=== PATIENT | female | born 2000 | race Hispanic/Latino ===

== ENCOUNTER 2020-06-22 21:28 | Emergency (ER) | payer BC ==
--- NOTE | 2020-06-22 22:31 | RAD REPORT ---
EXAM DESCRIPTION: RAD - Elbow Right 3 View - 06/22/2020 10:03 pm CLINICAL HISTORY: Elbow pain FINDINGS: No fracture or dislocation seen
--- NOTE | 2020-06-22 22:36 | ER ---
Nurse's Notes [facility] Name: Kaylynn Caceres Age: 19 yrs Sex: Female : 2000 Arrival Date: 06/22/2020 Time: 21:30 Bed 7 Private MD: Diagnosis: Contusion of right elbow-from fall Presentation: 06/22 21:32 Chief complaint: Patient states: "I was roller skating and I fell and hurt my right jd3 arm.". Coronavirus screen: At this time, the client does not indicate any symptoms associated with coronavirus-19. Ebola Screen: Patient negative for fever greater than or equal to 101.5 degrees Fahrenheit, and additional compatible Ebola Virus Disease symptoms. Initial Sepsis Screen: Does the patient meet any 2 criteria? No. Patient's initial sepsis screen is negative. Does the patient have a suspected source of infection? No. Patient's initial sepsis screen is negative. Risk Assessment: Do you want to hurt yourself or someone else? Patient reports no desire to harm self or others. Onset of symptoms was June 22, 2020. 21:32 Method Of Arrival: Ambulatory jd3 21:32 Acuity: ALEYDA 4 jd3 Triage Assessment: 23:09 Injury Description: contusion. 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 - Social history:: Smoking status: Patient denies any tobacco usage or history of. Screenin:45 Abuse screen: Denies threats or abuse. Denies injuries from another. Nutritional mg2 screening: No deficits noted. Tuberculosis screening: No symptoms or risk factors identified. Tuberculosis screening: No symptoms or risk factors identified. Fall Risk Fall in past 12 months (25 points). Assessment: 21:44 General: Appears in no apparent distress. comfortable, Behavior is calm, cooperative. mg2 Pain: Complains of pain in right elbow. Neuro: Level of Consciousness is awake, alert, obeys commands, Oriented to person, place, time, situation. Cardiovascular: Capillary refill < 3 seconds Patient's skin is warm and dry. Respiratory: Airway is patent Respiratory effort is even, unlabored, Respiratory pattern is regular, symmetrical. GI: No signs and/or symptoms were reported involving the gastrointestinal system. : No signs and/or symptoms were reported regarding the genitourinary system. EENT: No signs and/or symptoms were reported regarding the EENT system. Derm: Skin is intact, is healthy with good turgor, Skin is pink, warm \\T\\ dry. normal. Musculoskeletal: Circulation, motion, and sensation intact. Capillary refill < 3 seconds, Reports pain in right elbow. 23:08 Reassessment: Patient and/or family updated on plan of care and expected duration. Pain ea level reassessed. Patient is alert, oriented x 3, equal unlabored respirations, skin warm/dry/pink. Discharge instruction given to patient, verbalized the understanding of instruction. Vital Signs: 21:34 BP 123 / 77; Pulse 88; Resp 17 S; Temp 98.0(TE); Pulse Ox 100% on R/A; Weight 77.11 kg jd3 (R); Height 5 ft. 7 in. (170.18 cm) (R); Pain 8/10; 21:34 Body Mass Index 26.63 (77.11 kg, 170.18 cm) jd3 ED Course: 21:30 Patient arrived in ED. bp1 21:33 Triage completed. jd3 21:35 Arm band placed on. jd3 21:37 Neil Beatty PA is PHCP. cp 21:37 Sedrick Pineda MD is Attending Physician. cp 21:37 Benton Jimenez, SHAHIDA is Primary Nurse. mg2 21:45 Patient has correct armband on for positive identification. mg2 21:45 Door closed. Ice pack to injury. mg2 21:45 No provider procedures requiring assistance completed. Patient did not have IV access mg2 during this emergency room visit. 22:03 XRAY Elbow RIGHT 3 view: fall while roller skating In Process Unspecified. EDMS 22:34 Yoseph Graham MD is Referral Physician. cp 23:06 Orthoglass splint: posterior long arm splint applied to the right arm. dh4 Administered Medications: 22:41 Drug: Ibuprofen 800 mg Route: PO; ea 22:57 Follow up: Response: No adverse reaction mg2 22:42 Drug: Tylenol 1000 mg Route: PO; ea 22:57 Follow up: Response: No adverse reaction mg2 Outcome: 22:35 Discharge ordered by . gregorio 23:08 Discharged to home ambulatory, with family. ea 23:08 Condition: stable 23:08 Discharge instructions given to patient, Instructed on discharge instructions, follow up and referral plans. medication usage, Demonstrated understanding of instructions, follow-up care, medications, Prescriptions given X 1. 23:10 Patient left the ED. ea Signatures: Dispatcher [employer] EDMS Neil Beatty PA PA cp Antunez, Elena RN RN Javier Reyes RN RN jd3 Benton Jimenez RN RN mg2 Ranjeet Staley 4 Joan Gomez [facility] Corrections: (The following items were deleted from the chart) 21:35 21:34 Pulse 88bpm; Resp 17bpm; Spontaneous; Pulse Ox 100% RA; Temp 98.0F Temporal; jd3 77.11 kg Reported; Height 5 ft. 7 in. Reported; BMI: 26.6; Pain 8/10; jd3
--- NOTE | 2020-06-22 22:36 | EDPHYS ---
Physician Documentation [facility] Name: Kaylynn Caceres Age: 19 yrs Sex: Female : 2000 Arrival Date: 06/22/2020 Time: 21:30 Bed 7 Private MD: ED Physician Sedrick Pineda HPI: 06/22 21:45 This 19 yrs old Female presents to ER via Ambulatory with complaints of Arm cp Injury. 21:45 The patient or guardian complains of injury, pain, that is acute, swelling, tenderness, cp painful ROM. The complaints affect the right elbow. Context: resulted from a fall, while skating. Onset: The symptoms/episode began/occurred today. Treatment prior to arrival includes: sling. Associated signs and symptoms: Pertinent negatives: deformity, numbness, tingling. 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 - Social history:: Smoking status: Patient denies any tobacco usage or history of. ROS: 21:50 MS/extremity: Positive for pain, swelling, tenderness, of the right elbow, Negative for cp deformity. 21:50 Constitutional: Negative for fever, chills, and weight loss. cp 21:50 Neck: Negative for pain with movement, pain at rest, stiffness. 21:50 Back: Negative for pain at rest, pain with movement. 21:50 Neuro: Negative for altered mental status, headache, numbness, tingling. 21:50 All other systems are negative. Exam: 21:55 Constitutional: The patient appears in no acute distress, alert, awake, well developed, cp well nourished. 21:55 Head/Face: Normocephalic, atraumatic. cp 21:55 Neck: ROM/movement: is normal, is supple, without pain, no range of motions limitations. 21:55 Chest/axilla: Inspection: normal. 21:55 Cardiovascular: Rate: normal. 21:55 Respiratory: the patient does not display signs of respiratory distress, Respirations: normal, no use of accessory muscles, no retractions. 21:55 Abdomen/GI: Exam negative for discomfort, distension, guarding, Inspection: abdomen appears normal. 21:55 Back: pain, is absent, ROM is normal. 21:55 Musculoskeletal/extremity: Extremities: grossly normal except: noted in the right elbow: pain, Pulses: noted to be 2+ in the right radial artery, Joints: All joints are normal except the right elbow displays limited range of motion, painful range of motion, swelling, tenderness. 21:55 Neuro: Orientation: to person, place \T\ time. Mentation: is normal. Vital Signs: 21:34 BP 123 / 77; Pulse 88; Resp 17 S; Temp 98.0(TE); Pulse Ox 100% on R/A; Weight 77.11 kg jd3 (R); Height 5 ft. 7 in. (170.18 cm) (R); Pain 8/10; 21:34 Body Mass Index 26.63 (77.11 kg, 170.18 cm) jd3 Procedures: 23:10 Splinting: Splint applied to right elbow using posterior elbow orthoglass. applied by cp tech. Examined by me, post splint application: neurovascular intact, Patient tolerated well. MDM: 21:39 Patient medically screened. 22:25 Test interpretation: by ED physician or midlevel provider: xrays of right elbow cp negative for fracture. 22:35 Data reviewed: vital signs, nurses notes, radiologic studies, plain films. 06/22 21:42 Order name: XRAY Elbow RIGHT 3 view: fall while roller skating; Complete Time: 22:34 06/22 22:34 Interpretation: Report reviewed. 06/22 22:24 Order name: Posterior Elbow Splint; Complete Time: 22:57 cp Administered Medications: 22:41 Drug: Ibuprofen 800 mg Route: PO; ea 22:57 Follow up: Response: No adverse reaction mg2 22:42 Drug: Tylenol 1000 mg Route: PO; ea 22:57 Follow up: Response: No adverse reaction mg2 Disposition: 06/23 07:23 Co-signature as Attending Physician, Sedrick Pineda MD. mh7 Disposition: 06/22/20 22:35 Discharged to Home. Impression: Contusion of right elbow - from fall. - Condition is Stable. - Discharge Instructions: Elbow Contusion. - Prescriptions for Naprosyn 500 mg Oral Tablet - take 1 tablet by ORAL route 2 times per day take with food; 20 tablet. - Medication Reconciliation Form, Thank You Letter, Antibiotic Education, Prescription Opioid Use, Work release form form. - Follow up: Yoseph Graham MD; When: 2 - 3 days; Reason: Recheck today's complaints. - Problem is new. - Symptoms have improved. Signatures: Dispatcher [employer] EDMS Neil Beatty PA PA cp Antunez, Elena, RN RN ea Davies, Jonathon, RN RN jd3 Sedrick Pineda MD MD mh7 Benton Jimenez RN mg2 Corrections: (The following items were deleted from the chart) 06/22 23:10 22:35 06/22/2020 22:35 Discharged to Home. Impression: Contusion of right elbow - from ea fall. Condition is Stable. Forms are Medication Reconciliation Form, Thank You Letter, Antibiotic Education, Prescription Opioid Use. Follow up: Dr. Yoseph Graham; When: 2 - 3 days; Reason: Recheck today's complaints. Problem is new. Symptoms have improved. cp
[2020-06-22] MEDS ORDERED: ACETAMINOPHEN 500 MG TAB ONE (22:53)
[2020-06-22] MEDS ORDERED: IBUPROFEN 400 MG TAB ONE (22:53)
[2020-06-23 03:22] VITALS: BP 123/77; TEMP 98; O2SAT 100
== END 2020-06-22 23:10 | disposition home or self-care (01) ==
LOC: ER 21:28
DX: S50.01XA Contusion of right elbow, initial encounter (principal); W19.XXXA Unspecified fall, initial encounter; Y93.21 Activity, ice skating; Y92.9 Unspecified place or not applicable; Z91.011 Allergy to milk products; Z91.012 Allergy to eggs; Z91.018 Allergy to other foods
CPT/HCPCS: 99284

== ENCOUNTER 2023-11-05 21:39 | Emergency (ER) | payer BC ==
[2023-11-05] MEDS ORDERED: NA CHLORIDE 0.9% 1,000 ML ONE (21:52)
[2023-11-05] MEDS ORDERED: FAMOTIDINE 20 MG/2 ML VIAL IV ONE (21:52)
[2023-11-05] MEDS ORDERED: METHYLPREDNISOLONE 125 MG INJ ONE (21:52)
[2023-11-05] MEDS ORDERED: DIPHENHYDRAMINE 50 MG/ML VIAL ONE (21:52)
--- NOTE | 2023-11-05 23:13 | EDPHYS ---
Physician Documentation [facility] Name: Kaylynn Caceres Age: 23 yrs Sex: Female : 2000 Arrival Date: 11/05/2023 Time: 21:39 Bed 12 Private MD: ED Physician Jayce Mitchell HPI: 11/04 21:47 This 23 yrs old Female presents to ER via Unassigned with complaints of kb Allergic Reaction. 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 States her face, ears and hands became red, swollen and itchy. States her throat is feeling itchy as well. Came in right away because it started and progressed quickly. Denies shortness of breath. Historical: - Allergies: 23:23 EGG/POULTRY; kd3 23:23 Milk/dairy products; kd3 - PMHx: 23:23 Anxiety; kd3 - Immunization history:: Adult Immunizations up to date. - Social history:: Smoking status: unknown. ROS: 21:47 Constitutional: As per HPI kb Exam: 21:47 Constitutional: This is a well developed, well nourished patient who is awake, alert, kb and in no acute distress. Head/Face: Normocephalic, atraumatic. ENT: Moist Mucous membranes Cardiovascular: Regular rate Respiratory: Respirations even and unlabored. No increased work of breathing. Talking in full sentences Abdomen/GI: Soft, non-tender. No distention MS/ Extremity: Pulses equal, no cyanosis. Neurovascular intact. Full, normal range of motion. Neuro: Awake and alert, GCS 15, oriented to person, place, time, and situation. Moves all extremities. Normal gait. 21:47 Skin: erythema and slight swelling to face, ears and hands. Rash to neck. Vital Signs: 22:09 BP 123 / 67; Pulse 87; Resp 16; Temp 98.8; Pulse Ox 99% ; Weight 86.18 kg; Height 5 ft. pf1 6 in. ; Pain 0/10; 23:25 BP 122 / 78; Pulse 79; Resp 19; Pulse Ox 98% on R/A; kd3 22:09 Body Mass Index 30.67 (86.18 kg, 167.64 cm) pf1 22:09 Pain Scale: Adult pf1 MDM: 21:43 Patient medically screened. kb 21:49 Differential diagnosis: anaphylaxis, angioedema, urticaria. Data reviewed: vital signs, kb nurses notes. 23:10 Counseling: I had a detailed discussion with the patient and/or guardian regarding the kb historical points, exam findings, and any diagnostic results supporting the discharge/admit diagnosis, the need for outpatient follow up, a family practitioner, to return to the emergency department if symptoms worsen or persist or if there are any questions or concerns that arise at home. Response to treatment: the patient's symptoms have resolved after treatment. 11/04 21:47 Order name: IV Start; Complete Time: 22:02 kb Administered Medications: 22:02 Drug: NS 0.9% IV 1000 ml IV at 1000 ml once Route: IV; Rate: 1000 ml; Site: left pf1 antecubital; 23:08 Follow up: Response: No adverse reaction; IV Status: Completed infusion; IV Intake: ha1 500ml 22:02 Drug: Famotidine IVP 20 mg IVP once; dilute with 10 mL 0.9% NaCl; give over 2 minutes pf1 Route: IVP; Site: left antecubital; 23:00 Follow up: Response: No adverse reaction; Marked relief of symptoms ha1 22:02 Drug: diphenhydrAMINE IVP 25 mg IVP once Route: IVP; Site: left antecubital; pf1 23:00 Follow up: Response: No adverse reaction; Marked relief of symptoms ha1 22:02 Drug: MethylPrednisoLONE IVP 125 mg IVP once Route: IVP; Site: left antecubital; pf1 23:00 Follow up: Response: No adverse reaction; Marked relief of symptoms ha1 Disposition: 11/05 03:34 Co-signature as Attending Physician, Jayce Mitchell MD I reviewed the patient's care rt provided by the Advanced Practice Provider and agree with the diagnosis and treatment plan. Disposition Summary: 11/05/23 23:12 Discharge Ordered Notes: Location: Home kb Condition: Stable kb Diagnosis - Urticaria, unspecified kb Followup: kb - With: Emergency Department - When: As needed - Reason: Worsening of condition Followup: kb - With: Private Physician - When: 2 - 3 days - Reason: Recheck today's complaints, Continuance of care, Re-evaluation by your physician Discharge Instructions: - Discharge Summary Sheet kb - Allergies, Adult kb - Hives, [id number] kb Forms: - Medication Reconciliation Form kb - Thank You Letter kb - Antibiotic Education kb - Prescription Opioid Use kb - Patient Portal Instructions kb - Leadership Thank You Letter kb Prescriptions: - Pepcid 20 mg Oral Tablet - take 1 tablet ORAL route every 12 hours for 5 days; 10 tablet; Refills: 0, kb Product Selection Permitted - Prednisone 20 mg Oral Tablet - take 1 tablet ORAL route once daily for 5 days; 5 tablet; Refills: 0, Product kb Selection Permitted Signatures: Deedee Zhang, Aliyah Mcdowell RN RN kd3 Jayce Mitchell MD MD rt Jannie Campbell RN RN pf1 Lexie Huitron RN ha1
--- NOTE | 2023-11-05 23:13 | ER ---
Nurse's Notes [facility] Name: Kaylynn Caceres Age: 23 yrs Sex: Female : 2000 Arrival Date: 11/05/2023 Time: 21:39 Bed 12 Private MD: Diagnosis: Urticaria, unspecified Presentation: 11/04 22:09 Chief complaint: Patient states: [facility] my hands pf1 started burning, faced felt numb and ears felt like they were swollen. I am allergic to Mild and Eggs. Coronavirus screen: Vaccine status: Patient reports receiving the 2nd dose of the covid vaccine. Ebola Screen: Patient negative for fever greater than or equal to 101.5 degrees Fahrenheit, and additional compatible Ebola Virus Disease symptoms. Onset: The symptoms/episode began/occurred 1 hour(s) ago. Anaphylaxis evaluation, the patient reports or I have noted the following symptoms which indicate a significant risk of anaphylaxis: vomited x1, hands burning, face numb. Initial Sepsis Screen: Does the patient meet any 2 criteria? No. Patient's initial sepsis screen is negative. Risk Assessment: Do you want to hurt yourself or someone else? Patient reports no desire to harm self or others. Onset of symptoms was November 05, 2023. 22:09 Method Of Arrival: Ambulatory pf1 22:09 Acuity: ALEYDA 3 pf1 23:24 Initial Sepsis Screen: Does the patient have a suspected source of infection? No. kd3 Patient's initial sepsis screen is negative. Historical: - Allergies: 23:23 EGG/POULTRY; kd3 23:23 Milk/dairy products; kd3 - PMHx: 23:23 Anxiety; kd3 - Immunization history:: Adult Immunizations up to date. - Social history:: Smoking status: unknown. Screenin:22 [facility] ED Fall Risk Assessment (Adult) History of falling in the last 3 months, kd3 including since admission No falls in past 3 months (0 pts) Confusion or Disorientation No (0 pts) Intoxicated or Sedated No (0 pts) Impaired Gait No (0 pts) Mobility Assist Device Used No (0 pt) Altered Elimination No (0 pt) Score/Fall Risk Level 0 - 2 = Low Risk Oriented to surroundings. Abuse screen: Denies threats or abuse. Denies injuries from another. Nutritional screening: No deficits noted. Tuberculosis screening: No symptoms or risk factors identified. Assessment: 23:22 General: Appears in no apparent distress. Behavior is calm, cooperative. Pain: Denies kd3 pain. Neuro: Level of Consciousness is awake, alert, obeys commands, Oriented to person, place, time, situation. Respiratory: Airway is patent Trachea midline Respiratory effort is even, unlabored, Breath sounds are clear bilaterally. Vital Signs: 22:09 BP 123 / 67; Pulse 87; Resp 16; Temp 98.8; Pulse Ox 99% ; Weight 86.18 kg; Height 5 ft. pf1 6 in. ; Pain 0/10; 23:25 BP 122 / 78; Pulse 79; Resp 19; Pulse Ox 98% on R/A; kd3 22:09 Body Mass Index 30.67 (86.18 kg, 167.64 cm) pf1 22:09 Pain Scale: Adult pf1 ED Course: 21:41 Patient arrived in ED. ra3 21:43 Deedee Zhang FNP-C [facility]. kb 21:43 Jayce Mitchell MD is Attending Physician. kb 22:17 Triage completed. pf1 23:22 Aliyah Escalera, RN is Primary Nurse. kd3 23:22 Arm band placed on right wrist. kd3 23:22 No provider procedures requiring assistance completed. IV discontinued, intact, kd3 bleeding controlled, No redness/swelling at site. Pressure dressing applied. 23:24 Patient has correct armband on for positive identification. Provided Education on: . kd3 Administered Medications: 22:02 Drug: NS 0.9% IV 1000 ml IV at 1000 ml once Route: IV; Rate: 1000 ml; Site: left pf1 antecubital; 23:08 Follow up: Response: No adverse reaction; IV Status: Completed infusion; IV Intake: ha1 500ml 22:02 Drug: Famotidine IVP 20 mg IVP once; dilute with 10 mL 0.9% NaCl; give over 2 minutes pf1 Route: IVP; Site: left antecubital; 23:00 Follow up: Response: No adverse reaction; Marked relief of symptoms ha1 22:02 Drug: diphenhydrAMINE IVP 25 mg IVP once Route: IVP; Site: left antecubital; pf1 23:00 Follow up: Response: No adverse reaction; Marked relief of symptoms ha1 22:02 Drug: MethylPrednisoLONE IVP 125 mg IVP once Route: IVP; Site: left antecubital; pf1 23:00 Follow up: Response: No adverse reaction; Marked relief of symptoms ha1 Medication: 23:24 VIS not applicable for this client. kd3 Intake: 23:08 IV: 500ml; Total: 500ml. ha1 Outcome: 23:12 Discharge ordered by MD. adams 23:23 Discharged to home ambulatory, kd3 23:23 Condition: stable 23:23 Discharge instructions given to patient, family, Instructed on discharge instructions, follow up and referral plans. medication usage, 23:25 Patient left the ED. kd3 Signatures: Deedee Zhang, JOSIAH-C SENIOR ADMINISTRATIVE SERVICES OFFICER-Aliyah Amador RN RN kd3 Lexie Huitron RN RN ha1 Jannie Campbell RN RN pf1 [facility] ra3
[2023-11-05 23:49] VITALS: BP 122/78; TEMP 98.8; O2SAT 98
== END 2023-11-05 23:25 | disposition home or self-care (01) ==
LOC: ER 21:39
DX: L50.9 Urticaria, unspecified (principal); Z91.011 Allergy to milk products; Z91.012 Allergy to eggs; Z91.018 Allergy to other foods
CPT/HCPCS: 96361; 96375; 96374; 99284; J1200; J2930; J7030